=== PATIENT | female | born 1945 | race Caucasian/White ===

== ENCOUNTER 2017-10-23 09:18 | Outpatient (CLI) | payer MEDICARE ==
--- NOTE | 2017-10-23 10:38 | RAD ---
LEFT SHOULDER RADIOGRAPHS THREE VIEWS: Date: 10-23-17 Provided Clinical History: Left shoulder pain. FINDINGS: There is no evidence for fracture or other acute osseous abnormality. The glenohumeral relationship a ppears normal. The subacromial space appears preserved. Acromioclavicular joint osteoarthrosis is not ed. The visualized left lung field appears clear. IMPRESSION: Acromioclavicular joint osteoarthrosis without evidence for acute abnormality. POS: [facility]
== END 2017-10-23 09:19 | disposition home or self-care (01) ==
LOC: NAV RAD 09:18
PROVIDERS: ATTEND Nurse Practitioner Family
DX: M25.512 Pain in left shoulder (principal); M19.012 Primary osteoarthritis, left shoulder

== ENCOUNTER 2020-04-05 09:06 | Outpatient (CLI) | payer MEDICARE ==
--- NOTE | 2020-04-05 09:29 | RAD ---
XR Hip Lt 2-3 View INDICATION: Left hip pain COMPARISON: None FINDINGS: Bones: No acute osseous abnormality. Bone mineralization appears within normal limits. Hip joint: There is mild left hip osteoarthrosis. SI joints and symphysis pubis: Radiographically normal. Intrapelvic contents: There is a fibroid uterus. There are phleboliths within the lower left hemipelv is. Surrounding soft tissues: Radiographically normal. IMPRESSION: 1. Mild left hip osteoarthrosis. No acute fracture or subluxation demonstrated.
--- NOTE | 2020-04-05 10:52 | RAD ---
RIGHT HIP 2 VIEWS: HISTORY: Right hip pain for several months without trauma. FINDINGS/IMPRESSION: Arthrosis and degenerative enthesophytic changes noted of the right hip without acute fracture or dis location. Evidence for a calcified fibroid. No other acute process. POS: [facility]
== END 2020-04-05 09:07 | disposition home or self-care (01) ==
LOC: NAV RAD 09:06
PROVIDERS: ATTEND Nurse Practitioner Family
DX: M25.551 Pain in right hip (principal); M25.552 Pain in left hip; M16.0 Bilateral primary osteoarthritis of hip; D36.7 Benign neoplasm of other specified sites

== ENCOUNTER 2021-07-27 11:40 | Outpatient (CLI) | payer MEDICARE | END 2021-07-27 11:41 | disposition home or self-care (01) | LOC: NAV RAD 11:40 | PROVIDERS: ATTEND Nurse Practitioner Family | DX: S49.92XA Unspecified injury of left shoulder and upper arm, initial encounter (principal); M19.012 Primary osteoarthritis, left shoulder ==